=== PATIENT | female | born 1970 | race Caucasian/White ===

== ENCOUNTER 2021-02-26 10:02 | Outpatient (CLI) | payer OTHER, SELFPAY ==
[2021-02-26 10:57] LABS: SARS-CoV-2 RNA PCR Positive (Negative)
== END 2021-02-26 10:03 | disposition home or self-care (01) ==
PROVIDERS: PCP Internal Medicine; Visit Provider Internal Medicine
DX: U07.1 COVID-19 (principal)
CPT/HCPCS: C9803; U0003; U0005

== ENCOUNTER 2021-12-21 07:20 | Outpatient (CLI) | payer OTHER, SELFPAY ==
--- NOTE | ~2021-12-21 | US_ITS ---
US right upper quadrant DATE: 12/21/2021 08:16 INDICATION: Elevated liver enzymes TECHNIQUE: Real-time imaging of liver, pancreas, gallbladder fossa COMPARISON: None FINDINGS: The gallbladder is surgically absent. No hepatic space occupying mass lesion is detected. Normal hepatopedal portal venous flow direction. The pancreatic tail is obscured. The pancreas otherwise appears unremarkable. The common bile duct me asures 5 mm, normal. No pancreatic duct dilatation. IMPRESSION: Status post cholecystectomy Reviewed, dictated and finalized at Location [facility]. Reviewed, dictated and finalized at location B. IMPRESSION: Status post cholecystectomy
== END 2021-12-21 07:21 | disposition home or self-care (01) ==
LOC: CHSIMG 07:25
PROVIDERS: PCP Internal Medicine; Visit Provider Internal Medicine
DX: R94.5 Abnormal results of liver function studies (principal)
CPT/HCPCS: 76705

== ENCOUNTER 2022-01-12 07:43 | Day surgery (SDC) | payer OTHER, SELFPAY ==
[2021-12-27 11:09] VITALS: BMI 38.8
[2021-12-30 10:47] VITALS: BMI 40.7
[2022-01-12 08:03] VITALS: BP 141/87; PULSE 80; RESP 20; TEMP 36.8; O2SAT 98
[2022-01-12] MEDS: LACTATED RINGERS 1,000 ML 150 ML IV CONT (08:17)
--- NOTE | 2022-01-12 08:27 | P.PNAN_ITS ---
Anes - Initial Pre Proc Eval Procedure: Operation Date: 01/12/22 09:15 Proposed Procedures p Screening Colonoscopy - Rodrigue Garrison DO Date/Time: 01/12/22 08:27 Surgeon: Rodrigue Garrison DO Pre Op Diagnosis: Neolplasm Screening Patient Data Age: 51 Gender: F Height: 1.57 m Weight: 98.7 kg Last Vital Signs Temp 36.8 C 01/12/22 08:03 Pulse 80 01/12/22 08:03 Resp 20 01/12/22 08:03 BP 141/87 H 01/12/22 08:03 Pulse Ox 98 01/12/22 08:03 O2 Del Method Room Air 01/12/22 08:03 Allergies Allergy/AdvReac Type Severity Reaction Status Date / Time latex Allergy Severe Swelling Verified 01/12/22 08:11 of Lip/Tongue/Throat amoxicillin [From Augmentin] AdvReac Mild Nausea and Verified 01/12/22 08:11 Vomiting clavulanic acid AdvReac Mild Nausea and Verified 01/12/22 08:11 [From Augmentin] Vomiting Home Medications Medication Instructions Recorded Confirmed Type atorvastatin 40 mg tablet 4 mg PO HS 12/30/21 01/12/22 History cholecalciferol (vitamin D3) 50 50 mcg PO DAILY 12/30/21 01/12/22 History mcg (2,000 unit) capsule (Vitamin D3) citalopram 20 mg tablet 20 mg PO DAILY 12/30/21 01/12/22 History coenzyme Q10-vit 1 cap PO DAILY 12/30/21 01/12/22 History F0-A4-E-magnesium-zinc 30 mg-25 mg-25 mg-250 mg cap folic acid 1 mg tablet 1 mg PO DAILY 12/30/21 01/12/22 History hydrochlorothiazide 25 mg tablet 25 mg PO DAILY 12/30/21 01/12/22 History hydroxychloroquine 200 mg tablet 200 mg PO BID 12/30/21 01/12/22 History methotrexate sodium 2.5 mg tablet 20 mg PO WEEKLY 12/30/21 01/12/22 History multivit,Ca,min-iron gluconat 1 1 tablet PO DAILY 12/30/21 01/12/22 History mg-FA 66.7 mcg-biotin 1,000 mcg tablet (Hair,Skin and Nails) ropinirole 1 mg tablet 1 mg PO TID 12/30/21 01/12/22 History trazodone 50 mg tablet 50 mg PO HS 12/30/21 01/12/22 History Patient hx anesthesia problems: none Family hx anesthesia problems: none Results Review: All pre-operative results and documents have been reviewed as part of the pre- operative evaluation. [facility] Past Medical History Medical History Arthritis Asthma Depression Hyperlipidemia Hypertension Anes - Eval Final PreProcedure Day of Procedure 01/12/22 08:27 Patient weight: morbidly obese Heart: regular rate and rhythm Lungs: clear to auscultation Airway: Mallampati scale class II Neurological: alert and oriented Last oral intake: >/= 8 hours ASA classification: III Emergent: no Anesthetic plan: proceed Anesthesia type and monitoring: general GIVS and standard monitoring Results Review: All pre-operative results and documents have been reviewed as part of the pre- operative evaluation. Informed Consent: The patient's anesthetic plan and its attendant risks and benefits were discussed with the patient/family/POA. Questions were solicited and answers provided to the satisfaction of the patient/family/POA.
--- NOTE | 2022-01-12 08:49 | PM.IMHP ---
H&P: HPI History of Present Illness Date/Time: 01/12/22 08:49 Chief Complaint: Screening Narrative: 51 yo womanpresents for first colonoscopy. She denies hematochezia or melena. No fam hx colon cancer. Review of Systems Review of Systems: All systems reviewed & are unremarkable except as noted in HPI and below Constitutional: Constitutional: Denies chills, Denies fever(s), Denies headache(s) and Denies weight loss Eyes: Eyes: Denies change in vision ENT: Denies dizziness, Denies headache(s), Denies neck mass and Denies throat swelling Cardiovascular: Cardiovascular: Denies chest pain, Denies lightheadedness and Denies dyspnea Respiratory: Respiratory: Denies cough, Denies dyspnea and Denies wheezing Gastrointestinal: Gastrointestinal: Denies abdominal pain, Denies change in bowel habits, Denies nausea and Denies vomiting Genitourinary: Genitourinary: Denies hematuria and Denies dysuria Musculoskeletal: Musculoskeletal: Reports as per HPI Integumentary/Breasts: Skin/Breast: Reports as per HPI Neurologic: Denies dizziness and Denies headache(s) Allergic/Immunologic: Allergic/Immunologic: Denies throat swelling and Denies wheezing PMFSH Past Medical History Medical History Arthritis Asthma Depression Hyperlipidemia Hypertension Meds Home Medications and Allergies Home Medications Medication Instructions Recorded Confirmed Type atorvastatin 40 mg tablet 4 mg PO HS 12/30/21 01/12/22 History cholecalciferol (vitamin D3) 50 50 mcg PO DAILY 12/30/21 01/12/22 History mcg (2,000 unit) capsule (Vitamin D3) citalopram 20 mg tablet 20 mg PO DAILY 12/30/21 01/12/22 History coenzyme Q10-vit 1 cap PO DAILY 12/30/21 01/12/22 History E2-I6-H-magnesium-zinc 30 mg-25 mg-25 mg-250 mg cap folic acid 1 mg tablet 1 mg PO DAILY 12/30/21 01/12/22 History hydrochlorothiazide 25 mg tablet 25 mg PO DAILY 12/30/21 01/12/22 History hydroxychloroquine 200 mg tablet 200 mg PO BID 12/30/21 01/12/22 History methotrexate sodium 2.5 mg tablet 20 mg PO WEEKLY 12/30/21 01/12/22 History multivit,Ca,min-iron gluconat 1 1 tablet PO DAILY 12/30/21 01/12/22 History mg-FA 66.7 mcg-biotin 1,000 mcg tablet (Hair,Skin and Nails) ropinirole 1 mg tablet 1 mg PO TID 12/30/21 01/12/22 History trazodone 50 mg tablet 50 mg PO HS 12/30/21 01/12/22 History Allergies Allergy/AdvReac Type Severity Reaction Status Date / Time latex Allergy Severe Swelling Verified 01/12/22 08:11 of Lip/Tongue/Throat amoxicillin [From Augmentin] AdvReac Mild Nausea and Verified 01/12/22 08:11 Vomiting clavulanic acid AdvReac Mild Nausea and Verified 01/12/22 08:11 [From Augmentin] Vomiting Vital Signs Vital Signs - 24 hr 01/12/22 08:03 Temperature 36.8 C Pulse Rate 80 Respiratory Rate 20 Blood Pressure 141/87 H Pulse Oximetry 98 Oxygen Delivery Room Air Exam Const: General: no acute distress and alert Orientation/consciousness: patient oriented x3 HENMT: Head: normocephalic and atraumatic Ears: hearing grossly normal bilaterally Face/Nose/Sinus: Normal nares present Mouth: Yes Normal oral and palatal mucosa present Eyes: Periorbital: periorbital findings normal Sclera: sclerae normal EOM: EOMs intact bilaterally Neck: Neck: normal visual inspection, no lymphadenopathy and trachea midline Chest: Chest palpation & inspection: normal inspection of the chest Resp: Effort & Inspection: normal respiratory effort Auscultation: clear to auscultation bilaterally Cardio: Jugular venous distension: no JVD Rate: regular rate Rhythm: regular rhythm Heart sounds: S1 normal heart sound present and S2 normal heart sound present Peripheral pulses: Peripheral pulses 2+ throughout GI: Inspection: normal to inspection GI Palp: Yes Soft to palpation, No Tenderness to palpation present (GI), No Guarding due to palpation present (GI) and No Rebound tendern
[2022-01-12 09:10] VITALS: BP 101/80; PULSE 80; RESP 14; O2SAT 100
[2022-01-12 09:20] VITALS: BP 109/68; PULSE 75; RESP 15; O2SAT 99
--- NOTE | 2022-01-12 09:28 | WPDANESPN ---
Anes - Prog Note Post-Op Date/Time: 01/12/22 09:28 Cardiovascular status: normal Respiratory status: normal Airway patency: baseline Mental status: baseline Post-Op hydration status: normal Vital Signs: Last Vital Signs Temp 36.8 C 01/12/22 08:03 Pulse 75 01/12/22 09:20 Resp 15 01/12/22 09:20 BP 109/68 01/12/22 09:20 Pulse Ox 99 01/12/22 09:20 O2 Del Method Room Air 01/12/22 09:20 Pain Score (VAS): 0 Patient Feedback: Patient satisfied with anesthetic care.
[2022-01-12 09:30] VITALS: BP 100/65; PULSE 71; RESP 14; O2SAT 100
== END 2022-01-12 09:44 | disposition home or self-care (01) ==
PROVIDERS: PCP Internal Medicine; Visit Provider Surgery
PROC: 0DJD8ZZ Inspection of Lower Intestinal Tract, Via Natural or Artificial Opening Endoscopic (ICD-10-PCS; CPT 45378; principal; 2022-01-12 09:15)
DX: Z12.11 Encounter for screening for malignant neoplasm of colon (principal)
CPT/HCPCS: 45378

== ENCOUNTER 2025-01-01 08:22 | Outpatient (CLI) | payer OTHER, SELFPAY ==
--- NOTE | ~2025-01-01 | XR_ITS ---
EXAMINATION: XR foot RT min 3V, 01/01/2025 8:45 CDT HISTORY: PAIN IN HANDS, PAIN IN KNEES, PAIN IN FEET COMPARISON: No comparisons available. Findings: No acute fracture or malalignment. Large calcaneal spur. Minimal Achilles enthesopathy. Soft tissues unremarkable. Impression: No acute fracture or malalignment. Reviewed, dictated and finalized at location P. Impression: No acute fracture or malalignment.
--- NOTE | ~2025-01-01 | XR_ITS ---
EXAMINATION: XR knee RT 3V, 01/01/2025 8:45 CDT HISTORY: PAIN IN HANDS, PAIN IN KNEES, PAIN IN FEET COMPARISON: No comparisons available. Findings: No acute fracture or malalignment. Severe degenerative changes patellofemoral joint, small effusion Soft tissues unremarkable. Impression: No acute fracture or malalignment. Reviewed, dictated and finalized at location P. Impression: No acute fracture or malalignment.
--- NOTE | ~2025-01-01 | XR_ITS ---
EXAMINATION: XR hand LT min 3V, 01/01/2025 8:45 CDT HISTORY: PAIN IN HANDS, PAIN IN KNEES, PAIN IN FEET COMPARISON: No comparisons available. Findings: No acute fracture or malalignment. Moderate degenerative changes of the first metacarpal carpal joint, no erosions identified Soft tissues unremarkable. Impression: No acute fracture or malalignment. Reviewed, dictated and finalized at location P. Impression: No acute fracture or malalignment.
--- NOTE | ~2025-01-01 | XR_ITS ---
EXAMINATION: XR foot LT min 3V, 01/01/2025 8:45 CDT HISTORY: PAIN IN HANDS, PAIN IN KNEES, PAIN IN FEET COMPARISON: No comparisons available. Findings: No acute fracture or malalignment. Large calcaneal spur. Minimal Achilles enthesopathy. Soft tissues unremarkable. Impression: No acute fracture or malalignment. Reviewed, dictated and finalized at location P. Impression: No acute fracture or malalignment.
--- NOTE | ~2025-01-01 | XR_ITS ---
EXAMINATION: XR hand RT min 3V, 01/01/2025 8:45 CDT HISTORY: PAIN IN HANDS, PAIN IN KNEES, PAIN IN FEET COMPARISON: No comparisons available. Findings: No acute fracture or malalignment. No significant degenerative changes. Soft tissues unremarkable. Impression: No acute fracture or malalignment. Reviewed, dictated and finalized at location P. Impression: No acute fracture or malalignment.
--- NOTE | ~2025-01-01 | XR_ITS ---
EXAMINATION: XR knee LT 3V, 01/01/2025 8:45 CDT HISTORY: PAIN IN HANDS, PAIN IN KNEES, PAIN IN FEET COMPARISON: No comparisons available. Findings: No acute fracture or malalignment. Moderate degenerative changes patellofemoral joint Soft tissues unremarkable. Impression: No acute fracture or malalignment. Reviewed, dictated and finalized at location P. Impression: No acute fracture or malalignment.
--- OUTSIDE RECORDS SUMMARY | 2025-01-01 08:36 | XMS_ITS | Encounter Summary ---
Author Organization [facility] Address [address] [place] [address] Care Team Providers Care Truck Dispatcher Name Role Phone Robert Sanchez MD Primary Care Provider [phone] Encounter Details Date Type Department Care Team ([facility] st Contact Info) Description 04/06/1920 Orders Only [facility] Health Information Management [address] [place] [id number] Scanning, Provider Social History Tobacco Use Types Packs/Day Years Used Date Smoking Tobacco: Never Assessed Comments Unknown Sex and Gender Information Value Date Recorded Sex Assigned at Not on file Legal Sex Female 9:25 AM GRAPHIC ART SALES REPRESENTATIVE Gender Identity Female 03/20/2018 9:38 AM GRAPHIC ART SALES REPRESENTATIVE Sexual Orientation Straight 05/28/2020 2: 33 PM GRAPHIC ART SALES REPRESENTATIVE documented as of this encounter Plan of Treatment Not on file documented as of this encounter Procedures Procedure Name Priority Date/Time Associated Diagnosis Comments SCAN - LABS 04/06/1920 documented in this encounter Results * SCAN - LABS (04/06/1920) us Provider Scanning Final Result documented in this encounter Visit Diagnoses Not on filedocumented in this encounter Care Teams Truck Dispatcher Relationship Specialty Start Date End Date Robert Sanchez MD [address] [place] [address] PCP - General Internal Medicine 04/04/18 documented as of this encounter
--- OUTSIDE RECORDS SUMMARY | 2025-01-01 08:36 | XMS_ITS | Clinical Summary ---
Author Organization [facility] Address [address] [place] [id number] Care Team Providers Care Leather Polisher Name Role Phone Robert Sanchez MD Primary Care Provider [phone] Allergies Active Allergy Reactions Criticality Noted Date Comments Amoxicillin-Pot Clavulanate Vomiting Low 04/04/19 19 Latex Hives,Itching,Rash,S welli ng Medium 01/31/2007 Medications atorvastatin (LIPITOR) 40 mg tablet Take 1 tablet (40 mg total) by mouth Take 1/2 tablet daily 8 Active hydroCHLOROthiazi de (HYDRODIURIL) 25 mg tablet Take 1 tablet (25 mg total) by mouth daily 8 Active POTASSIUM CHLORIDE ER 10 mEq CR tablet Take 1 tablet/capsule (10 mEq total) by mouth 2 (two) times a day 8 Active rOPINIRole (REQUIP) 1 mg tablet 8 Active cholecalciferol (VITAMIN D-3) 1,000 unit tablet Take 1 tablet (1,000 Units total) by mouth daily Active melatonin 10 mg tablet 1 tablet (10 mg total) daily Active fluticasone (FLONASE) 50 mcg/actuation nasal spray Administer 1 spray into each nostril daily Active albuterol HFA (PROAIR HFA) 90 mcg/actuation inhalerIndication s:Mild intermittent asthma without complication Inhale 1-2 puffs every 4 (four) hours as needed for wheezing. 8.5 g 11 9 Active traZODone (DESYREL) 50 mg tablet 2 Active BIOTIN ORAL Take by mouth Acti ve coenzyme Q10 100 mg capsule Take 1 capsule (100 mg total) by mouth nightly Active citalopram (CeleXA) 20 mg tablet Take 1 tablet (20 mg total) by mouth daily 2 Active zolpidem (AMBIEN) 10 mg tabletIndications :Sleep-Onset Insomnia Take 1 tablet (10 mg total) by mouth nightly as needed for sleep Active celecoxib (CeleBREX) 200 mg capsule Take 1 capsule (200 mg total) by mouth 2 (two) times a day Active loratadine (CLARITIN) 10 mg tablet Take 1 tablet (10 mg total) by mouth daily Active hydroxychloroquin e (PLAQUENIL) 200 mg tablet TAKE ONE TABLET BY MOUTH TWICE A DAY 60 tablet 2 3 Active Active Problems Problem Noted Date Diagnosed Date Rheumatoid arthritis without rheumatoid factor, multiple sites 09/28/2021 Assessment & Plan (10/14/2022 11:37 AM CDT): Flare in disease activity. May start prednisone 10 mg daily in morning. Follow up with me in 3 months and [address] Bonilla. Continue HCQ for now. Assessment & Plan (09/28/2021 9:33 AM CDT): Suboptimal control. On HCQ 200 mg bid, will go ahead and add MTX 6 tabs weekly along with folic acid 1 mg daily. Understands will return in 3 months for labs/review of symptoms. MTX education sheet provided at earlier visit. Encounter for long-term (cur rent) use of high-risk medication 09/28/2021 Immunizations Immunization Administration Dates Next Due Influenza, Quadrivalent, Spl it, Intramuscular 12/23/2016 Influenza, Quadrivalent, Spl it, Preservative Free, Intramuscular 01/20/2022,01/07/2020,02/02/2019,12/15 Influenza, Trivalent, Preser vative Free, Intramuscular 02/09/2015 Moderna SARS-CoV-2 Monovalen t Vaccination (12+ YRS) 07/10/2020 Moderna Sars-cov-2 Monovalen t Booster Vaccination (12+ YRS) 02/22/2021 Moderna Sars-cov-2 Monovalen t Booster Vaccination .25 Ml dose (12+ YRS) 06/10/2020 Pneumococcal Polysaccharide PPV23 04/04/2018 Tdap 09/20/2019 ZOSTER Recombinant 10/20/2021 Surgical History Surgery Date Site/Laterality Comments CHOLECYSTECTOMY CARPAL TUNNEL RELEASE HYSTERECTOMY SINUS SURGERY Medical History Medical History Date Comments Allergic Hypertension Hyperlipidemia Family History Relation Name Status Comments Father Mother Social History Tobacco Use Types Packs/Day Years Used Date Smoking Tobacco: Never Smokeless Tobacco: Never Tobacco Cessation:Counseling Given: Not Answered Alcohol Use Standard Drinks/Week Comments Yes 0 (1 standard drink = 0.6 oz pur e alcohol) AUDIT-C Answer Date Recorded Q1: How often do you have a drink containing alc ohol? 2-4 times a month 09/28/2021 Average Number of Drinks Not on file 022 Q3: How often do you have si x or more drinks on one occasion? Monthly 09/28/2021 Personal Safety Answer Date Recorded Getting School Help Needed Not on file 03/18 Comments Unknown Sex and Gender Information Value Date Recorded Sex Assigned at Not on file Legal Sex Female 9:25 AM GRAZING AIDE Gender Identity Female 03/20/2018 9:38 AM GRAZING AIDE Sexual Orientation Straight 05/28/2020 2: 33 PM GRAZING AIDE Obstetrics History Last Filed Vital Signs Vital Sign Reading Time Taken Comments Blood Pressure 129/82 02/14/2023 7:48 AM GRAZING AIDE Pulse 78 02/14/2023 7:48 AM GRAZING AIDE Temperature 36.8 C (98.3 F) 02/14/2023 7:48 AM GRAZING AIDE Respiratory Rate 20 10/14/2022 10:39 AM CDT Oxygen Saturation 96% 10/14/2022 10:39 AM CDT Inhaled Oxygen Concentration - - Weight 105.7 kg (233 lb) 02/14/2023 7:48 AM GRAZING AIDE Height 157.5 cm (5' 2) 02/14/2023 7:48 AM GRAZING AIDE Body Mass Index 42.62 02/14/2023 7:48 AM GRAZING AIDE Plan of Treatment Health Maintenance Due Date Last Done Comments Breast Cancer Screening-Mammogram 1971 Colon Cancer Screening-Colonoscopy 1971 Depression Screening 1971 Hepatitis B Screening 06/15/1989 Regular Well Visit/Exam 18-64 06/15/1989 Pneumococcal vaccine <65 (2 of 2 - PCV) 04/04/2019 04/04/2018 Covid-19 Vaccine (2 - Modern a risk series) 03/22/2021 02/22/2021, 07/10/2020, 06/10/2020 Zoster Vaccine (2 of 2) 12/15/2021 10/20/2021 Influenza Vaccine (#1) 2024 2, 01/07/2020, 02/02/2019, Additional history exists DTaP/Tdap/Td Vaccine (2 - Td or Tdap) 09/19/2029 09/20/2019 Hepatitis C Screening Completed 06/22/2020 Procedures Procedure Name Priority Date/Time Associated Diagnosis Comments HEPATITIS PANEL, ACUTE Routine 06/22/2020 9:48 AM CDT Musculoskeletal pain from Last 3 Months or Most Recently Relevant to Health Maintenance Results * Hepatitis panel, acute (06/22/2020 9:48 AM CDT) Hep A IgM Nonreactive Nonreactive [facility] ([facility]) Comment: Interpretive Data: If Hep A IgM Ab is reported as Equivocal, a new sample should be drawn in two weeks for testing. Current interpretive data was last revised on 19. Testing performed by: [address] [address] Hep B core IgM Nonreactive Nonreactive [facility] ([facility]) Comment: Interpretive Data If HepB Core IgM Ab is reported as Equivocal, a new sample should be drawn in two weeks for testing. Current interpretive data was last revised on 19. Testing performed by: [address] [address] Hep C Ab Nonreactive Nonreactive [facility] ([facility] Comment: Interpretive Data Nonreactive: Antibodies to HCV not detected. Does NOT exclude the possibility of recent exposure to HCV. Equivocal: Equivocal for HCV antibodies. Supplemental molecular testing will be automatically performed to determine infection status in accordance with current CDC screening recommendations. Reactive: Positive for HCV antibodies. This may represent current or past HCV infection. Supplemental molecular testing will be automatically performed to determine current infection status in accordance with current CDC screening recommendations. Interpretive data was last revised on 2019. Testing performed by: [address] [place]., [address] HepBsAg Nonreactive Nonreactive [facility] ([facility]) Comment:Testing performed by : [facility], [address] [place] [address]., [id number] Blood specimen (specimen) 06/22/2020 9:48 AM CDT 06/22/2020 2:11 PM CDT Danuta Bonilla MD LAB MICROBIOLOGY - NERMD ORDERABLES Final Result [facility] ([facility]) [facility] Department [place] [address] from Last 3 Months or Most Recently Relevant to Health Maintenance Insurance [facility] PL[facility] Care Teams Leather Polisher Relationship Specialty Start Date End Date Robert Sanchez MD [address] [place] [address] PCP - General Internal Medicine 04/04/18
--- OUTSIDE RECORDS SUMMARY | 2025-01-01 08:36 | XMS_ITS | Patient Health Record ---
Author Organization [facility] Address [address] [place], [place] [id number] Care Team Providers Care Cleaner Greaser Name Role Phone BRODIE Del Angel Unavailable Feng Jackson Unavailable Unavailable Reason For Referral No Information Plan Of Treatment No Information Insurance Providers Payer Name Payer Address Payer Phone Subscriber Number Group Number Insured Name Patient Relationship to Insured Coverage Start Date Coverage End Date [facility] [address] [address] [place] [id number] LOTTIE YBARRA Spouse - patient is the spouse of the insured
== END 2025-01-01 08:23 | disposition home or self-care (01) ==
LOC: CHSLAB 08:25
PROVIDERS: PCP Internal Medicine; Visit Provider Internal Medicine Rheumatology
DX: M79.641 Pain in right hand (principal); M79.642 Pain in left hand; M25.561 Pain in right knee; M25.562 Pain in left knee; G89.29 Other chronic pain; M79.671 Pain in right foot; M79.672 Pain in left foot
CPT/HCPCS: 73130; 73562; 73630